=== PATIENT | male | born 1985 | race Caucasian/White ===

== ENCOUNTER 2023-05-30 18:05 | Inpatient (IN) | payer OTHER ==
[~2023-05-30] VITALS: Ht 182.9 cm; Wt 81.6 kg
[2023-05-30 19:55] LABS: BASOPHILS # (AUTO) 0.04 K/uL (0.00-0.20); BASOPHILS % (AUTO) 0.3 % (0.0-5.0); EOSINOPHILS # (AUTO) 0.18 K/uL (0.00-0.70); EOSINOPHILS % (AUTO) 1.3 % (0.0-8.0); HEMATOCRIT 42.5 % (42-54); IMMATURE GRANULOCYTE ABSOLUTE 0.06 K/uL (0-1); LYMPHOCYTES # (AUTO) 1.8 K/uL (1.0-4.8); LYMPHOCYTES % (AUTO) 13.3 % (21.0-51.0); MEAN CORPUSCULAR HEMOGLOBIN 33.4 pg (27.0-33.0); MEAN CORPUSCULAR HGB CONC 35.8 g/dL (32.0-36.0); MEAN CORPUSCULAR VOLUME 93.4 fL (79-99); MONOCYTES # (AUTO) 0.6 K/uL (0.1-1.0); MONOCYTES % (AUTO) 4.6 % (3.0-13.0); NEUTROPHILS # (AUTO) 10.7 K/uL (1.8-7.7); NEUTROPHILS % (AUTO) 80.1 % (40.0-77.0); PLATELET COUNT (AUTO) 198 K/uL (130-400); RED BLOOD CELL COUNT(AUTO) 4.55 MIL/uL (4.50-6.20); RED CELL DISTRIBUTION WIDTH 11.8 % (11.0-15.5); WHITE BLOOD COUNT (AUTO) 13.4 K/uL (4.8-10.8)
[2023-05-30 20:31] LABS: ALBUMIN 3.9 g/dL (3.5-5.0); BILIRUBIN,TOTAL 0.5 mg/dL (0.2-1.0); CREATININE 1.1 mg/dL (0.5-1.5); TOTAL PROTEIN, SERUM 6.8 g/dL (6.0-8.3)
[2023-05-31] VITALS (8 sets, daily range): BP systolic 110–123; BP diastolic 57–69; PULSE 62–106; RESP 16–20; O2SAT 97–99
[2023-05-31] MEDS: LEVETIRACETAM 500 MG/5 ML SD VIAL IV SCH (01:39)
[2023-05-31] MEDS ORDERED: LORAZEPAM 2 MG/ML 1 ML VIAL IVP PRN (02:30)
[2023-05-31] MEDS ORDERED: ONDANSETRON 4MG INJ IVP PRN (02:30)
[2023-05-31] MEDS ORDERED: PHENYTOIN 100MG (50MG/ML) INJ 100 MG/2 ML ML IV SCH (08:30)
[2023-05-31] MEDS ORDERED: PHENYTOIN SODIUM 100 MG ERCAP PO SCH (09:00)
[2023-05-31] MEDS: NACL 0.9% INJ ONE (09:28)
[2023-05-31] MEDS: PHENYTOIN SODIUM INJ ONE (09:28)
[2023-05-31] MEDS ORDERED: GADOTERATE MEGLUMINE 10 MMOL/20 ML VIAL IV ONE (16:49)
[2023-05-31] MEDS: PHENYTOIN SODIUM 100 MG ERCAP PO SCH ×2 (17:31→23:28)
[2023-05-31 18:40] LABS: APPEARANCE,URINE CLEAR (CLEAR); BILIRUBIN,URINE NEGATIVE (NEGATIVE); COLOR,URINE LIGHT-YELLOW (YELLOW); GLUCOSE, URINE (UA) NEGATIVE (NEGATIVE); KETONES,URINE NEGATIVE (NEGATIVE); LEUKOCYTE ESTERASE ,URINE NEGATIVE Leu/uL (NEGATIVE); NITRATE,URINE NEGATIVE (NEGATIVE); OCCULT BLOOD,URINE NEGATIVE (NEGATIVE); PROTEIN,URINE NEGATIVE (NEGATIVE); UROBILINOGEN,URINE 0.2 mg/dL (0.2-1.0)
[2023-05-31 18:43] LABS: ADD UA MICROSCOPIC NO
[2023-05-31 18:46] LABS: AMPHET/METH SCREEN,URINE NEGATIVE (NEGATIVE); BARBITURATE SCREEN, URINE NEGATIVE (NEGATIVE); BENZODIAZEPINES SCREEN,URINE NEGATIVE (NEGATIVE); CANNABINOID SCREEN,URINE NEGATIVE (NEGATIVE); COCAINE SCREEN,URINE NEGATIVE (NEGATIVE); OPIATE SCREEN,URINE NEGATIVE (NEGATIVE); PHENCYCLIDINE SCREEN,URINE NEGATIVE (NEGATIVE)
[2023-05-31] MEDS ORDERED: LEVETIRACETAM 1,000 MG in 0.9%NACL 100ML 100 ML IV SCH (20:00)
[2023-05-31] MEDS: ACETAMINOPHEN 325 MG TAB PO PRN (23:29)
[2023-06-01] VITALS (7 sets, daily range): BP systolic 108–132; BP diastolic 57–75; PULSE 57–73; RESP 18; O2SAT 98–99
[2023-06-01 06:08] LABS: HEMATOCRIT 41.1 % (42-54); MEAN CORPUSCULAR HEMOGLOBIN 33.6 pg (27.0-33.0); MEAN CORPUSCULAR HGB CONC 35.5 g/dL (32.0-36.0); MEAN CORPUSCULAR VOLUME 94.5 fL (79-99); RED BLOOD CELL COUNT(AUTO) 4.35 MIL/uL (4.50-6.20); RED CELL DISTRIBUTION WIDTH 11.9 % (11.0-15.5); WHITE BLOOD COUNT (AUTO) 6.3 K/uL (4.8-10.8)
[2023-06-01 06:47] LABS: CREATININE 0.9 mg/dL (0.5-1.5); MAGNESIUM 1.9 mg/dL (1.80-2.40); POTASSIUM 3.9 mmol/L (3.5-5.1)
[2023-06-02] VITALS (8 sets, daily range): BP systolic 113–131; BP diastolic 63–76; PULSE 67–78; RESP 18–19; O2SAT 97–99
[2023-06-02 06:21] LABS: HEMATOCRIT 42.3 % (42-54); MEAN CORPUSCULAR HEMOGLOBIN 33.1 pg (27.0-33.0); MEAN CORPUSCULAR HGB CONC 35.2 g/dL (32.0-36.0); RED BLOOD CELL COUNT(AUTO) 4.5 MIL/uL (4.50-6.20); RED CELL DISTRIBUTION WIDTH 11.8 % (11.0-15.5); WHITE BLOOD COUNT (AUTO) 4.8 K/uL (4.8-10.8)
[2023-06-02 06:28] LABS: CREATININE 0.9 mg/dL (0.5-1.5); MAGNESIUM 1.9 mg/dL (1.80-2.40); POTASSIUM 3.7 mmol/L (3.5-5.1)
[2023-06-02 07:36] LABS: PHENYTOIN (DILANTIN) 20.2 mcg/mL (10.0-20.0)
[2023-06-02] MEDS: LACTULOSE 20 GM/30 ML UDCUP PO PRN (16:33)
[2023-06-03 04:35] VITALS: BP 127/80; PULSE 79; RESP 18
[2023-06-03 07:30] VITALS: O2SAT 97
[2023-06-03 08:00] VITALS: BP 119/65; PULSE 70; RESP 20
[2023-06-03 12:00] VITALS: BP 122/67; PULSE 78; RESP 18
== END 2023-06-03 16:00 | DRG 101 ==
LOC: EDH 18:05 → EEVIPCON 18:05 → OBSVTOIN 05-31 02:11 → EDHIP 05-31 02:11 → 3DH 05-31 06:30
PROVIDERS: ADMIT Internal Medicine Infectious Disease; ATTEND Internal Medicine Infectious Disease
PROC: 4A00X4Z Measurement of Central Nervous Electrical Activity, External Approach (ICD-10-PCS; principal; 2023-06-02)
DX: G40.909 Epilepsy, unspecified, not intractable, without status epilepticus (principal); F20.9 Schizophrenia, unspecified; D72.829 Elevated white blood cell count, unspecified; E66.9 Obesity, unspecified; F32.A Depression, unspecified; Z68.24 Body mass index [BMI] 24.0-24.9, adult; Z79.899 Other long term (current) drug therapy
CPT/HCPCS: 36415; 70450; 70553; 72125; 80048; 80053; 80177; 80185; 80305; 81003; 82550; 83605; 83735; 85025; 85027; 95819; G0378; J1165; J1953; J7050; A9575